=== PATIENT | female | born 2000 | race Caucasian/White ===

== ENCOUNTER 2023-06-09 09:57 | Emergency (ER) | payer OTHER, SELFPAY ==
[2023-06-09 10:09] VITALS: BP 120/88; PULSE 74; RESP 16; TEMP 37; O2SAT 100
--- NOTE | 2023-06-09 10:27 | ED.GENADULT ---
HPI - General Adult General Chief complaint: Skin/Abscess/Foreign Body Stated complaint: Rash All over; Uti symptoms Time Seen by Provider: 06/09/23 10:29 Source: patient, RN notes reviewed and old records reviewed Mode of arrival: ambulatory Limitations: no limitations History of Present Illness HPI narrative: 23-year-old female presents to the [facility] with complaints of a continued rash all over. Received a steroid shot 2 days ago. Patient reports she started with a generalized rash on Sunday, was seen at a programmer developer's office and received a steroid shot as well as topical hydrocortisone and Atarax . States that her face has gotten better but still itching generalized. No other treatment prior to arrival Patient also has concerns for a UTI. Patient reports that yesterday she started with urine that smells bad. Denies any other symptoms. No abdominal pain, nausea, vomiting. No back pain. Does not get a menstrual cycle due to an IUD. Related Data Home Medications Medication Instructions Recorded Confirmed hydrocortisone 2.5 % topical 2.5 applic topical DIRECTED 06/09/23 06/09/23 ointment hydroxyzine HCl 25 mg tablet 25 mg PO DIRECTED 06/09/23 06/09/23 Allergies Allergy/AdvReac Type Severity Reaction Status Date / Time sulfamethoxazole Allergy Hives Verified 06/09/23 10:22 [From Sulfamethoxazole-Trimethoprim] trimethoprim Allergy Hives Verified 06/09/23 10:22 [From Sulfamethoxazole-Trimethoprim] Review of Systems Review of Systems: All systems reviewed & are unremarkable except as noted in HPI and below Constitutional: Constitutional: Reports no additional constitutional complaints Eyes: Eyes: Reports no additional eye complaints ENT: Reports system reviewed and no additional complaints, except as documented Cardiovascular: Cardiovascular: Reports no additional cardiovascular complaints, Denies chest pain and Denies dyspnea Respiratory: Respiratory: Reports no additional respiratory complaints, Denies chest congestion, Denies cough and Denies dyspnea Gastrointestinal: Gastrointestinal: Reports no additional gastrointestinal complaints, Denies abdominal pain, Denies nausea and Denies vomiting Genitourinary: Genitourinary: Reports as per HPI Musculoskeletal: Musculoskeletal: Reports no additional musculoskeletal complaints Integumentary/Breasts: Skin/Breast: Reports as per HPI Neurologic: Reports system reviewed and no additional complaints, except as documented Psychiatric: Psychiatric: Reports no additional psychiatric complaints Allergic/Immunologic: Allergic/Immunologic: Reports no additional allergic/immunologic complaints PMFSH Comments At the time of my signature, I reviewed and agree with the nursing past medical, surgical, social, and family history. There is no relevant family history pertinent to the patient complaint. Exam Const: General: cooperative, healthy appearing, comfortable, no acute distress, well developed, alert and well nourished Nutritional Appearance: well nourished Orientation/consciousness: patient oriented x3 Limitations: no limitations HENMT: Head: normal to inspection Ears: hearing grossly normal bilaterally, external ears normal, TM's normal bilaterally and EAC's normal Face/Nose/Sinus: Normal external nose present, Normal nares present, Normal nasal mucous membranes and turbinates present, normal facial exam and face symmetric Face and sinus: normal facial exam and face symmetric Mouth: Yes Normal oral and palatal mucosa present, Yes lip normal and Yes moist mucous membranes Throat: posterior oropharynx normal, uvula midline and no uvular edema Eyes: General: appearance normal, both eyes and all related structures Alignment and Position: alignment normal Periorbital: periorbital findings normal Pupils: Equal, round and reactive pupils present EOM: EOMs intact bilaterally Neck: Neck: normal visual inspection, full ROM,
== END 2023-06-09 11:00 | disposition home or self-care (01) ==
PROVIDERS: Emergency Provider Nurse Practitioner
DX: N30.01 Acute cystitis with hematuria (principal); L50.9 Urticaria, unspecified
CPT/HCPCS: 81003; 81025; 87077; 87086; 87186; 99213; G0463